=== PATIENT | female | born 1990 | race African-American/Black ===

== ENCOUNTER 2019-07-11 17:03 | Emergency (ER) | payer MEDICAID ==
[~2019-07-11] VITALS: Ht 180.3 cm; Wt 73.0 kg
[2019-07-11] MEDS ORDERED: LIDOCAINE HCL/PF 1% 10 MG/ML 5ML VIAL IJ ONE (17:45)
[2019-07-11] MEDS ORDERED: TETANUS, DIPHTHERIA, PERTUSSIS VAC/PF 0.5ML (>7YR OLD) IM ONE (17:45)
[2019-07-11] MEDS ORDERED: HYDROCODONE/ACETAMINOPHEN 5/325MG TABLET PO ONE (17:45)
[2019-07-11] MEDS ORDERED: BACITRACIN ZINC OINT UDPKT TOP ONE (17:45)
[2019-07-11 17:46] VITALS: BP 148/96
== END 2019-07-11 18:43 | disposition home or self-care (01) ==
LOC: ER 17:03
DX: S61.214A Laceration without foreign body of right ring finger without damage to nail, initial encounter (principal); M54.5 Low back pain; V47.0XXA Car driver injured in collision with fixed or stationary object in nontraffic accident, initial encounter; Y93.89 Activity, other specified; Y92.018 Other place in single-family (private) house as the place of occurrence of the external cause
CPT/HCPCS: 12001; 90471; 90715; 99283; J3490; Z7610

== ENCOUNTER 2019-07-18 11:44 | Emergency (ER) | payer MEDICAID ==
[~2019-07-18] VITALS: Ht 182.9 cm; Wt 82.0 kg
[2019-07-18 12:37] VITALS: BP 130/80
== END 2019-07-18 12:39 | disposition home or self-care (01) ==
LOC: ER 11:46
DX: Z48.02 Encounter for removal of sutures (principal)
CPT/HCPCS: 99282; Z7610